=== PATIENT | female | born 1955 | race Asian ===

== ENCOUNTER 2019-04-27 17:01 | Emergency (ER) | payer OTHER ==
[2019-04-27] MEDS ORDERED: ACETAMINOPHEN 325 MG TABLET (FP) PO ONE (17:16)
[2019-04-27 17:30] VITALS: BP 138/61; PULSE 74; TEMP 98.3; BMI 41.6
[2019-04-27] MEDS ORDERED: ACETAMINOPHEN 325 MG TABLET (FP) ONE (17:30)
--- NOTE | 2019-04-27 18:25 | PDOC ---
Documentation entered by Lexus Ibarra SCRIBE, acting as scribe for Zac Chicas MD. Zac Chicas MD: This documentation has been prepared by the chatoibeFred Lincy, SCRIBE, under my direction and personally reviewed by me in its entirety. I confirm that the documentation accurately reflects all work, treatment, procedures, and medical decision making performed by me. History of Present Illness - General Chief Complaint: Injury Stated Complaint: RT KNEE PAIN Time Seen by Provider: 04/27/19 17:05 History Source: Patient Exam Limitations: No Limitations - History of Present Illness Initial Comments: 04/27/19 17:48 The patient is a 63-year-old female with a past medical history significant for HTN and HLD, who presents to the emergency department with R. knee pain. The patient reports on Saturday she was walking when she slipped on the snow. The patient states she held onto the car door, however the patients leg twisted. Denies LOC or head injury. The patient reports she was fine following the incident, she was able to ambulate without difficulty. Later that night, the patient was ambulating up the stairs, when she felt pain to the right knee. The patient reports pain worsened Saturday morning when she tried to sit on the toilet she felt a sharp pain to the anterior right knee. The patient states she can walk without difficulty, however, when she tried to bend the knee (getting up or sitting down), she feels a sharp pain to the knee. The patient reports she tried to get an appointment with PCP; however, the doctor isnt in the office till May, promoting the ED visit. The patient reports taking ibuprofen 600mg a day, with mild relief, last dose at 10:00 am today. Denies hip pain. Denies numbness, tingling, or loss of sensation. Allergies: NKA Social history: former smoker, no reported use of alcohol or recreational drugs. PCP: Dr. Flor Dowd. Past History - Past Medical History Allergies/Adverse Reactions: Allergies Allergy/AdvReac Type Severity Reaction Status Date / Time No Known Allergies Allergy Verified 05/19/12 10:07 Home Medications: Ambulatory Orders Amlodipine Besylate 10 mg PO DAILY 04/27/19 Atorvastatin Calcium 40 mg PO DAILY 04/27/19 Hydrochlorothiazide 25 mg PO DAILY 04/27/19 Losartan Potassium 100 mg PO DAILY 04/27/19 HTN: Yes Hypercholesterolemia: Yes - Psycho Social/Smoking Cessation Hx Smoking Status: No Smoking History: Former smoker Number of Cigarettes Smoked Daily: 0 Hx Alcohol Use: Yes Review of Systems - Review of Systems Able to Perform ROS?: Yes Comments:: 04/27/19 17:17 HEENT: no reported vision changes, headachem neck pain Musculskelatal - +R knee pain no reported back pain, joint swelling skin - no reported bruising, erythema, rash neurological: no reported headache, numbness, focal weakness, *Physical Exam - Physical Exam 04/27/19 17:18 GENERAL: The patient is awake, alert, and fully oriented, Nontoxic - in no acute distress. HEAD: Normocephalic, atraumatic. NECK: Normal range of motion, supple, no focal bony cervical. thoracic or lumbar tenderness EXTREMITIES: Normal range of motion, no edema. Mild tenderness to anterior aspect of R patella. neg anterior/psterior draw, no signs of ligamentous laxity , no focal bony tenderness to b/l hips/femur, tibfib/ankle. NEUROLOGICAL: No facial assymetry, Normal speech, moving all 4 extremities spontaneously and symmetrically, normal gait PSYCH: Normal mood, normal affect. SKIN: Warm, Dry, normal turgor, ED Treatment Course - RADIOLOGY Radiology Studies Ordered: Category Date Time Status KNEE 3 POS-RIGHT [RAD] Stat Radiology 04/27/19 17:17 Ordered Medical Decision Making - Medical Decision Making 04/27/19 17:22 63y F hx of htn, hl presents wit hR knee pain sp mechanical slip and fall on satuday. no head injury or loc. now with pain in R knee paticularly when walking up stairs or rising to standing from a seated position. no pain currently as long as she is avoiding those motions. will give tylenol will ck knee xray to ro oanh neida injury Discharge - Discharge Information Problems reviewed: Yes Clinical Impression/Diagnosis: Strain of knee Qualifiers: Encounter type: initial encounter Laterality: right Qualified Code(s): S86.911A - Strain of unspecified muscle(s) and tendon(s) at lower leg level, right leg, initial encounter Condition: Improved Disposition: HOME - Admission No - Follow up/Referral Referrals: Usama Dowd MD [Primary Care Provider] - Fidencio Valencia MD [Staff Physician] - - Patient Discharge Instructions Patient Printed Discharge Instructions: DI for Knee Pain Additional Instructions: Return to the emergency department immediately with ANY new, persistent or worsening symptoms. Take motrin or tyelnol as needed for any discomfort. You MUST call and follow up with your doctor tomorrow for further evaluation of your symptoms. Results were discussed with you. Please make sure your doctor reviews the results of your emergency evaluation. Your Emergency Department visit is not complete without a follow up with your doctor. If you had any xrays during your visit, it was read preliminarily by myself, a Radiologist will review it and if there are any additional findings we will call you. Print Language: PALAUAN - Post Discharge Activity
== END 2019-04-27 18:29 | disposition home or self-care (01) ==
LOC: FER 17:01 → SUPCPDRO 17:01 → FER 18:29
DX: S86.911A Strain of unspecified muscle(s) and tendon(s) at lower leg level, right leg, initial encounter (principal); I10 Essential (primary) hypertension; W01.0XXA Fall on same level from slipping, tripping and stumbling without subsequent striking against object, initial encounter; Y93.89 Activity, other specified; Y92.89 Other specified places as the place of occurrence of the external cause; E78.5 Hyperlipidemia, unspecified
CPT/HCPCS: 73562-TC-RT-FY; 99281-25

== ENCOUNTER 2019-12-17 15:43 | Emergency (ER) | payer OTHER ==
[2019-12-17 15:49] VITALS: BP 133/83; PULSE 78; TEMP 98.3; BMI 40.4
[2019-12-17] MEDS ORDERED: IBUPROFEN 600 MG TABLET (FP) PO ONE ×2 (16:02→16:16)
--- NOTE | 2019-12-17 16:05 | PDOC ---
History of Present Illness - General Chief Complaint: Injury Stated Complaint: LEFT 4TH/FOOT TOE INJURY Time Seen by Provider: 12/17/19 15:44 History Source: Patient Exam Limitations: No Limitations - History of Present Illness Initial Comments: 12/17/19 16:03 64-year-old female history of hypertension hyperlipidemia here today status post left foot injury. Patient states she stubbed her foot on a dresser complaining of left toe pain worse with movement and walking did have some associated ecchymosis and swelling pain is moderate did not take anything for pain prior to arrival denies any associated ankle knee or hip pain Past History - Medical History Allergies/Adverse Reactions: Allergies Allergy/AdvReac Type Severity Reaction Status Date / Time No Known Allergies Allergy Verified 12/17/19 15:43 Home Medications: Ambulatory Orders Amlodipine Besylate 10 mg PO DAILY 04/27/19 Atorvastatin Calcium 40 mg PO DAILY 04/27/19 Hydrochlorothiazide 25 mg PO DAILY 04/27/19 Losartan Potassium 100 mg PO DAILY 04/27/19 Aspirin [Aspirin EC] 81 mg PO DAILY 12/17/19 COPD: No HTN: Yes Hypercholesterolemia: Yes - Reproductive History Is Patient Now?: No - Psycho-Social/Smoking History Smoking Status: No Smoking History: Never smoked Have you smoked in the past 12 months: No Number of Cigarettes Smoked Daily: 0 Information on smoking cessation initiated: No - Substance Abuse Hx (Audit-C & DAST Scrn) How often the patient has a drink containing alcohol: Never Score: In Men: 4 or > Positive; In Women: 3 or > Positive: 0 Screen Result (Pos requires Nsg. Audit-10AR): Negative In the last yr the pt used illegal drug/Rx for NonMed reason: No Score: Yes response is considered Positive: 0 Screen Result (Positive result requires Nsg. DAST-10): Negative Review of Systems - Review of Systems Constitutional: No: Chills HEENTM: No: Eye Pain, Tearing Respiratory: No: Cough, Shortness of Breath Cardiac (ROS): No: Chest Pain ABD/GI: Yes: Other Musculoskeletal: Yes: Joint Pain Integumentary: Yes: Bruising, Other. No: Change in Color Neurological: No: Headache, Numbness, Paresthesia All Other Systems: Reviewed and Negative *Physical Exam - Vital Signs Last Vital Signs Temp Pulse Resp BP Pulse Ox 98.3 F 78 18 133/83 100 12/17/19 15:45 12/17/19 15:45 12/17/19 15:45 12/17/19 15:45 12/17/19 15:45 - Physical Exam 12/17/19 16:05 Awake alert no acute distress head is atraumatic lungs are clear bilaterally heart is regular 30 murmurs rubs or gallops extremity exam demonstrates nontender ankle knee and hip on the left. Examination of the left foot demonstrates tenderness over the left fourth toe at the distal and proximal phalanx. There is no metatarsal tenderness there is associated ecchymosis and minimal swelling distally patient is neurovascularly intact the patient has 2+ DP PT pulses. Ankle is with her own range of motion and nontender Overlying skin is intact no lacerations ED Treatment Course - RADIOLOGY Radiology Studies Ordered: Category Date Time Status TOE(S) LEFT [RAD] Stat Radiology 12/17/19 16:02 Ordered Medical Decision Making - Medical Decision Making 12/17/19 16:06 64-year-old female status post left foot injury plan x-ray to rule out underlying fracture Motrin for pain control likely rob splint and discharge home follow podiatry as needed 12/17/19 16:35 xray with degenerative changes, questionable dist phalynx fx. will rob tape, and followup with podiatry 12/17/19 16:38 fracture left fourth toe distal phalynx., base. Discharge - Discharge Information Problems reviewed: Yes Clinical Impression/Diagnosis: Toe injury Condition: Stable Disposition: HOME - Admission No - Follow up/Referral Referrals: Usama Dowd MD [Primary Care Provider] - Daniel Dougherty MD [Staff Physician] - - Patient Discharge Instructions Patient Printed Discharge Instructions: Toe Fracture Additional Instructions: you can rob tape your toes together for comfort. take ibuprofen 400 mg every 8 hours as needed for pain. follow up with a steel checker. you can see referral for podiatry, see dr dougherty, call and schedule appointment to be seen in 1week. return for any problems or concerns. where a stiff soled shoe. - Post Discharge Activity
== END 2019-12-17 16:45 | disposition home or self-care (01) ==
LOC: FER 15:43
DX: S92.515A Nondisplaced fracture of proximal phalanx of left lesser toe(s), initial encounter for closed fracture (principal)
CPT/HCPCS: 73660-TC-LT-FY; 99283-25

== ENCOUNTER 2020-03-12 17:58 | Emergency (ER) | payer OTHER ==
[2020-03-12] MEDS ORDERED: DIPHTH,PERTUSS(ACELL),TET 0.5 ML DISP.SYRIN IM ONE ×2 (18:01→18:32)
[2020-03-12 18:07] VITALS: BP 130/70; PULSE 80; TEMP 98; BMI 24.6
== END 2020-03-12 19:04 | disposition home or self-care (01) ==
LOC: FER 17:58
PROC: 3E0234Z Introduction of Serum, Toxoid and Vaccine into Muscle, Percutaneous Approach (ICD-10-PCS; principal; 2020-03-12)
DX: S61.012A Laceration without foreign body of left thumb without damage to nail, initial encounter (principal)
CPT/HCPCS: 73130-TC-LT-FY; 90715; 99284-25

== ENCOUNTER 2021-09-21 08:56 | Emergency (ER) | payer OTHER ==
[2021-09-21 09:05] VITALS: BP 138/84; PULSE 78; TEMP 98.3; BMI 46.0
[2021-09-21] MEDS ORDERED: ACETAMINOPHEN 325 MG TABLET (FP) PO ONE (10:28)
[2021-09-21] MEDS ORDERED: KETOROLAC TROMETHAMINE 30 MG/1 ML VIAL IM ONE (10:28)
[2021-09-21] MEDS ORDERED: ACETAMINOPHEN 325 MG TABLET (FP) ONE (10:40)
[2021-09-21] MEDS ORDERED: KETOROLAC TROMETHAMINE 30 MG/1 ML VIAL ONE (10:40)
[2021-09-21] MEDS ORDERED: IBUPROFEN 600 MG TABLET (FP) PO ONE (10:50)
== END 2021-09-21 11:18 | disposition home or self-care (01) ==
LOC: JERFT 08:56
DX: M25.531 Pain in right wrist (principal)
CPT/HCPCS: 73090-TC-RT-FY; 73110-TC-RT-FY; 99283-25

== ENCOUNTER 2021-11-23 01:12 | Emergency (ER) | payer OTHER ==
[2021-11-23] MEDS ORDERED: predniSONE 20 MG TABLET (UD) PO ONE (01:25)
[2021-11-23] MEDS ORDERED: diphenhydrAMINE HCL 50 MG CAPSULE PO ONE (01:25)
[2021-11-23] MEDS ORDERED: diphenhydrAMINE HCL 50 MG CAPSULE ONE (01:30)
[2021-11-23] MEDS ORDERED: predniSONE 20 MG TABLET (UD) ONE (01:30)
[2021-11-23 01:31] VITALS: BP 156/88; PULSE 72; RESP 20; TEMP 98.7; BMI 38.9
== END 2021-11-23 03:28 | disposition home or self-care (01) ==
LOC: FER 01:12
DX: L50.0 Allergic urticaria (principal)
CPT/HCPCS: 99283-25

== ENCOUNTER 2022-05-02 12:44 | Emergency (ER) | payer OTHER ==
[2022-05-02] MEDS ORDERED: LIDOCAINE 5% TOPICAL PATCH TP ONE (13:02)
[2022-05-02] MEDS ORDERED: KETOROLAC TROMETHAMINE 30 MG/1 ML VIAL IM ONE (13:02)
[2022-05-02] MEDS ORDERED: METHOCARBAMOL 500 MG TABLET PO ONE (13:02)
[2022-05-02 13:05] VITALS: BP 150/70; PULSE 74; RESP 18; TEMP 97.9; BMI 40.7
[2022-05-02] MEDS ORDERED: LIDOCAINE 5% TOPICAL PATCH ONE (13:08)
[2022-05-02] MEDS ORDERED: KETOROLAC TROMETHAMINE 30 MG/1 ML VIAL ONE (13:08)
[2022-05-02] MEDS ORDERED: METHOCARBAMOL 500 MG TABLET ONE (13:08)
== END 2022-05-02 14:42 | disposition home or self-care (01) ==
LOC: FER 12:44
PROC: 3E023GC Introduction of Other Therapeutic Substance into Muscle, Percutaneous Approach (ICD-10-PCS; principal; 2022-05-02)
DX: M54.89 Other dorsalgia (principal)
CPT/HCPCS: 99284-25

== ENCOUNTER 2022-05-28 19:18 | Emergency (ER) | payer MEDICARE, OTHER ==
[2022-05-28] MEDS ORDERED: CYCLOBENZAPRINE HCL 10 MG TABLET (FP) PO ONE (19:36)
[2022-05-28] MEDS ORDERED: KETOROLAC TROMETHAMINE 60 MG/2 ML VIAL IM ONE (19:36)
[2022-05-28] MEDS ORDERED: KETOROLAC TROMETHAMINE 60 MG/2 ML VIAL ONE (19:40)
[2022-05-28] MEDS ORDERED: CYCLOBENZAPRINE HCL 5 MG TABLET ONE (19:40)
[2022-05-28 19:49] VITALS: BP 142/84; PULSE 80; RESP 16; TEMP 97.8; BMI 39.8
== END 2022-05-28 20:58 | disposition home or self-care (01) ==
LOC: FER 19:18
PROC: 3E0233Z Introduction of Anti-inflammatory into Muscle, Percutaneous Approach (ICD-10-PCS; principal; 2022-05-28)
DX: R07.89 Other chest pain (principal)
CPT/HCPCS: 36415; 82550; 84484; 93005; 96372; 99284-25

== ENCOUNTER 2023-07-18 04:42 | Day surgery (SDC) | payer OTHER ==
[2023-07-17 10:16] VITALS: BMI 38.6
[2023-07-18 13:01] VITALS: TEMP 98
[2023-07-18 13:47] VITALS: BP 113/54; PULSE 63; RESP 16
== END 2023-07-18 13:47 | disposition home or self-care (01) ==
LOC: JASU-ENDO 04:42
PROVIDERS: ATTEND Internal Medicine Gastroenterology
PROC: 0DB68ZX Excision of Stomach, Via Natural or Artificial Opening Endoscopic, Diagnostic (ICD-10-PCS; 2023-07-18)
PROC: 0DB58ZX Excision of Esophagus, Via Natural or Artificial Opening Endoscopic, Diagnostic (ICD-10-PCS; principal; 2023-07-18 12:00)
DX: K22.10 Ulcer of esophagus without bleeding (principal); K44.9 Diaphragmatic hernia without obstruction or gangrene; K29.50 Unspecified chronic gastritis without bleeding
CPT/HCPCS: 88305-TC; 88312-TC; 88342-TC

== ENCOUNTER 2024-02-11 16:13 | Observation (INO) | payer OTHER ==
[2024-02-11 17:19] LABS: INR 1.04 (0.83-1.09); PROTHROMBIN TIME (PATIENT) 11.8 SEC (9.7-13.0)
[2024-02-11 17:22] LABS: ACTIVATED PTT 30.1 SECONDS (25.2-36.5); HEMATOCRIT 33.8 % (32.4-45.2); HEMOGLOBIN 11.3 G/dL (10.7-15.3); MCH 25.1 pg (25.7-33.7); MCHC 33.4 g/dl (32.0-36.0); MEAN CELL VOLUME 75.2 fl (80-96); MEAN PLT VOLUME 8.5 fl (7.5-11.1); PLATELET COUNT 330.2 10^3/uL (134-434); RDW 15.7 % (11.6-15.6); WHITE BLOOD COUNT 17.2 10^3/uL (4.0-10.8)
[2024-02-11] MEDS: SODIUM PHOSPHATE/NA BIPHOS 133 ML ENEMA PR ONE (17:28)
[2024-02-11] MEDS ORDERED: ONDANSETRON 4 MG/2 ML VIAL ONE (17:29)
[2024-02-11] MEDS ORDERED: ACETAMINOPHEN INJECTION 100 ML ONE (17:30)
[2024-02-11 17:40] LABS: ALBUMIN 4.5 g/dl (3.4-5.0); ALK PHOS 50 U/L (45-117); ANION GAP 13 mmol/L (4-13); BILIRUBIN,TOTAL 0.6 mg/dl (0.2-1); CALCIUM 9.9 mg/dl (8.5-10.1); CHLORIDE 98 mmol/L (98-107); CO2 27 mmol/L (21-32); CREATININE 1.4 mg/dl (0.6-1.3); GLUCOSE,RANDOM 104 mg/dl (74-106); MAGNESIUM 1.7 mg/dL (1.8-2.4); POTASSIUM 2.8 mmol/L (3.5-5.1); SGOT/AST 14 U/L (15-37); SGPT/ALT 12 U/L (7-52); SODIUM 138 mmol/L (136-145); TOT PROT 6.5 g/dl (6.4-8.2)
[2024-02-11] MEDS: ONDANSETRON 4 MG/2 ML VIAL IVPB ONE (17:47)
[2024-02-11] MEDS: ACETAMINOPHEN 1000 MG/100 ML BAG IVPB ONE (17:47)
[2024-02-11] MEDS: SODIUM CHLORIDE 0.9% 1000 ML INFUS.BAG IV ONE (17:52)
[2024-02-11] MEDS: MAGNESIUM SULF 50% (8.12 MEQ/2 ML-1 GM VIAL) IVPB ONE (17:55)
[2024-02-11] MEDS ORDERED: MAGNESIUM 1GM/D5W - 1 GM/100 ML IVPB IVPB ONE (17:58)
[2024-02-11] MEDS: KCL 10 MEQ IVPB 10 MEQ/100 ML INFUS.BAG IVPB SCH (18:10)
[2024-02-11 19:01] LABS: OVALOCYTE 2+; PLATELET ESTIMATE ADEQUATE
[2024-02-11] MEDS ORDERED: KCL 10 MEQ IVPB 10 MEQ/100 ML INFUS.BAG IVPB ONE (19:53)
[2024-02-11 20:53] LABS: EPITHELIAL CELLS 0-5 /hpf
[2024-02-11 23:13] LABS: HIV INTERPRETATION NEGATIVE (NEGATIVE)
[2024-02-12 00:32] VITALS: BMI 32.5
[2024-02-12] MEDS ORDERED: FAMOTIDINE 20 MG TABLET PO PRN (05:21)
[2024-02-12] MEDS: POTASSIUM CHLORIDE ORAL LIQUID 20 MEQ/15 ML PO ONE (06:23)
[2024-02-12] MEDS: POLYETHYLENE GLYCOL (HEALTHYLAX) 3350 17 GM PACKET PO SCH (06:24)
[2024-02-12] MEDS: KCL 10 MEQ IVPB 10 MEQ/100 ML INFUS.BAG IVPB SCH ×2 (06:24→12:04)
[2024-02-12] MEDS: LACTATED RINGERS SOLUTION 1,000 ML/1,000 ML INFUS.BAG IV SCH (06:50)
[2024-02-12] MEDS: SODIUM PHOSPHATE/NA BIPHOS 133 ML ENEMA RC ONE (08:01)
[2024-02-12 08:48] LABS: HEMATOCRIT 33.2 % (32.4-45.2); HEMOGLOBIN 11.3 GM/dL (10.7-15.3); MCH 24.4 pg (25.7-33.7); MCHC 33.9 g/dl (32.0-36.0); MEAN PLT VOLUME 8.6 fl (7.5-11.1); PLATELET COUNT 355 10^3/uL (134-434); RBC 4.61 M/mm3 (3.60-5.2); WHITE BLOOD COUNT 14.6 K/mm3 (4.0-10.0)
[2024-02-12 08:53] LABS: POTASSIUM 3.1 mmol/L (3.5-5.1)
[2024-02-12 08:59] LABS: ALBUMIN 3.9 g/dl (3.4-5.0); CALCIUM 9.4 mg/dL (8.5-10.1)
[2024-02-12 09:03] LABS: CREATININE 0.7 mg/dL (0.55-1.3); PHOSPHOROUS 2.9 mg/dL (2.5-4.9)
[2024-02-12 09:04] LABS: BILIRUBIN,TOTAL 0.7 mg/dL (0.2-1); TOT PROT 6.5 g/dl (6.4-8.2)
[2024-02-12] MEDS: PIPERACILLIN/TAZOB 3.375 GM 50 ML IVPB SCH (09:11)
[2024-02-12] MEDS: MAGNESIUM SULFATE IN WATER 2 GM/50 ML IVPB IVPB ONE ×2 (09:11→09:12)
[2024-02-12] MEDS: ZINC OXIDE 20% TOPICAL OINTMENT 30 GM TUBE TP SCH (09:11)
[2024-02-12] MEDS: HEPARIN NA (PORCINE) 5,000 UNITS/ML 1ML VIAL SQ SCH (09:11)
[2024-02-12] MEDS ORDERED: LOSARTAN POTASSIUM 50 MG TABLET PO SCH (10:00)
[2024-02-12] MEDS ORDERED: amLODIPine BESYLATE 5 MG TABLET (FP) PO SCH (10:00)
[2024-02-12] MEDS: LACTULOSE 20 GM/30 ML UDC (FOR ORAL USE ONLY) PO ONE (17:15)
[2024-02-12] MEDS: ATORVASTATIN CA 40 MG TABLET (FP) PO SCH (22:15)
[2024-02-13 07:40] LABS: HEMATOCRIT 30.9 % (32.4-45.2); HEMOGLOBIN 10.2 GM/dL (10.7-15.3); MCH 24.2 pg (25.7-33.7); MEAN CELL VOLUME 73.4 fl (80-96); MEAN PLT VOLUME 8.3 fl (7.5-11.1); PLATELET COUNT 307 10^3/uL (134-434); RBC 4.21 M/mm3 (3.60-5.2); RDW 14.3 % (11.6-15.6); WHITE BLOOD COUNT 10.2 K/mm3 (4.0-10.0)
[2024-02-13 08:09] LABS: POTASSIUM 3.4 mmol/L (3.5-5.1)
[2024-02-13 08:13] LABS: CALCIUM 9.1 mg/dL (8.5-10.1)
[2024-02-13 08:14] LABS: ALBUMIN 3.4 g/dl (3.4-5.0); BLOOD UREA NITROGEN 9.7 mg/dL (7-18); MAGNESIUM 1.9 mg/dL (1.8-2.4)
[2024-02-13 08:17] LABS: CREATININE 0.7 mg/dL (0.55-1.3); PHOSPHOROUS 2.7 mg/dL (2.5-4.9)
[2024-02-13 08:19] LABS: BILIRUBIN,TOTAL 0.8 mg/dL (0.2-1); TOT PROT 5.9 g/dl (6.4-8.2)
[2024-02-13] MEDS ORDERED: PIPERACILLIN/TAZOB 3.375 GM 50 ML IVPB SCH (09:00)
[2024-02-13] MEDS: POTASSIUM CHLORIDE TABS 20 MEQ TABLET.ER (FP) PO ONE (09:15)
[2024-02-13] MEDS: PANTOPRAZOLE 40 MG TABLET PO SCH (09:15)
[2024-02-13] MEDS: LACTULOSE 20 GM/30 ML UDC (FOR ORAL USE ONLY) PO ONE ×3 (11:21→21:41)
[2024-02-13 14:00] VITALS: RESP 18
[2024-02-13 18:39] LABS: BASO % 0.5 % (0-2.0); EOS % 1.5 % (0-4.5); HEMATOCRIT 32.6 % (32.4-45.2); HEMOGLOBIN 10.7 GM/dL (10.7-15.3); LYMPH % 13.2 % (8-40); MCH 24.1 pg (25.7-33.7); MEAN CELL VOLUME 73.2 fl (80-96); MEAN PLT VOLUME 7.4 fl (7.5-11.1); MONO % 5.8 % (3.8-10.2); PLATELET COUNT 317 10^3/uL (134-434); RBC 4.45 M/mm3 (3.60-5.2); RDW 14.6 % (11.6-15.6); WHITE BLOOD COUNT 9.5 K/mm3 (4.0-10.0)
[2024-02-13] MEDS: PIPERACILLIN/TAZOB 4.5 GM 4.5 GM/100 ML BAG IVPB ONE (19:02)
[2024-02-13] MEDS: POTASSIUM CHLORIDE 10 MEQ in DEXTROSE 5%-NORMAL SALINE 1,000 ML IVPB SCH (20:15)
[2024-02-14 08:28] LABS: POTASSIUM 3.9 mmol/L (3.5-5.1)
[2024-02-14 08:38] LABS: BLOOD UREA NITROGEN 6.2 mg/dL (7-18); CALCIUM 8.8 mg/dL (8.5-10.1); MAGNESIUM 1.6 mg/dL (1.8-2.4)
[2024-02-14 08:39] LABS: ALBUMIN 3.3 g/dl (3.4-5.0)
[2024-02-14 08:41] LABS: CREATININE 0.6 mg/dL (0.55-1.3)
[2024-02-14 08:42] LABS: PHOSPHOROUS 2.5 mg/dL (2.5-4.9)
[2024-02-14 08:44] LABS: BILIRUBIN,TOTAL 0.6 mg/dL (0.2-1)
[2024-02-14 08:55] LABS: HEMATOCRIT 32.3 % (32.4-45.2); HEMOGLOBIN 10.7 GM/dL (10.7-15.3); MCH 24.5 pg (25.7-33.7); MCHC 33.2 g/dl (32.0-36.0); MEAN CELL VOLUME 73.9 fl (80-96); MEAN PLT VOLUME 8.2 fl (7.5-11.1); PLATELET COUNT 329 10^3/uL (134-434); RBC 4.38 M/mm3 (3.60-5.2); RDW 14.7 % (11.6-15.6); WHITE BLOOD COUNT 8.7 K/mm3 (4.0-10.0)
[2024-02-14 13:38] VITALS: TEMP 97.5
[2024-02-14 13:46] VITALS: BP 122/61; PULSE 70
== END 2024-02-14 15:02 | disposition home or self-care (01) ==
LOC: FER 16:13 → JERBED 23:41 → J4W 23:55
PROVIDERS: ADMIT Internal Medicine; ATTEND Internal Medicine
PROC: 3E033NZ Introduction of Analgesics, Hypnotics, Sedatives into Peripheral Vein, Percutaneous Approach (ICD-10-PCS; principal; 2024-02-11)
PROC: 3E0337Z Introduction of Electrolytic and Water Balance Substance into Peripheral Vein, Percutaneous Approach (ICD-10-PCS; 2024-02-11)
PROC: 3E033GC Introduction of Other Therapeutic Substance into Peripheral Vein, Percutaneous Approach (ICD-10-PCS; 2024-02-11)
PROC: 3E03329 Introduction of Other Anti-infective into Peripheral Vein, Percutaneous Approach (ICD-10-PCS; 2024-02-11)
PROC: 3E033GC Introduction of Other Therapeutic Substance into Peripheral Vein, Percutaneous Approach (ICD-10-PCS; 2024-02-11)
PROC: 3E0337Z Introduction of Electrolytic and Water Balance Substance into Peripheral Vein, Percutaneous Approach (ICD-10-PCS; 2024-02-11)
DX: K56.41 Fecal impaction (principal); E83.42 Hypomagnesemia; E87.6 Hypokalemia; N17.9 Acute kidney failure, unspecified; E78.00 Pure hypercholesterolemia, unspecified; I10 Essential (primary) hypertension; M19.90 Unspecified osteoarthritis, unspecified site; K21.00 Gastro-esophageal reflux disease with esophagitis, without bleeding; K44.9 Diaphragmatic hernia without obstruction or gangrene; E66.9 Obesity, unspecified
CPT/HCPCS: 36415; 71045-TC-FY; 74018-TC-FY; 74019-TC-FY; 74176-TC; 80053; 81003; 81015; 82550; 83605; 83690; 83735; 84100; 84484; 85025; 85027; 85610; 85730; 86803; 87040; 87389; 93005; 96361; 96365; 96366; 96367; 96375; 99291; G0378; J0131; J1644